=== PATIENT | male | born 1945 | race Caucasian/White ===

== ENCOUNTER 2017-01-02 07:20 | Day surgery (SDC) | payer MEDICARE, OTHER ==
[2016-12-25 12:26] VITALS: BMI 24.3
[~2017-01-02 07:20] MED LIST: LACTATED RINGERS 1,000 ML IV SCH; LIDOCAINE 1% 20 ML VIAL (10MG/ML) FOR IV START INTRADERMA PRN; MOXIFLOXACIN HCL 0.5% DROPS 3 ML BTL OP ONE; TETRACAINE 0.5% OPHTH (PF) DROPS 4 ML BTL OP ONE; TIMOLOL 0.5% OPHTH SOLN (PF) 0.2 ML DROPERETTE OP ONE
[2017-01-02 07:42] VITALS: RESP 16
[2017-01-02] MEDS: CYCLOPENTOLATE 1% OPHTH SOLN 2 ML BTL OP ONE ×2 (07:58→08:05)
[2017-01-02] MEDS: PHENYLEPHRINE 2.5% OPHTH DRP 2ML OP NR ×3 (07:59→08:07)
[2017-01-02] MEDS ORDERED: HYALURONATE SODIUM INTRAOCULAR 1 EACH SYRINGE (12MG/ML) INTRAOCULA ONE (08:55)
[2017-01-02] MEDS ORDERED: LIDOCAINE 1% (PF) 10MG/ML VIAL MISCELLANE ONE (08:55)
[2017-01-02] MEDS ORDERED: BALANCED SALT IRRIG SOLN COMB2 15 ML IRRIG.SOLN IRRIGATION ONE (08:55)
[2017-01-02] MEDS ORDERED: fentaNYL (PF) 50 MCG/ML 2 ML AMP ONE (08:56)
[2017-01-02] MEDS ORDERED: MIDAZOLAM 2 MG/2 ML VIAL ONE (08:56)
[2017-01-02] MEDS ORDERED: EPINEPHrine (PF) 0.3 ML in BALANCED SALT IRRIG SOLN COMB2 500 ML IRRIGATION ONE (09:05)
[2017-01-02] MEDS ORDERED: ATROPINE OPHTH SOLN 1% 5ML BTL RIGHT EYE ONE (09:08)
[2017-01-02] MEDS ORDERED: FLUORESCEIN STRIPS 1 MG STRIP RIGHT EYE ONE (09:32)
--- NOTE | 2017-01-02 09:38 | P.OP ---
Date of Procedure: 01/02/17 Preoperative Diagnosis: NS & CS Postoperative Diagnosis: same Procedure(s) Performed: PIOL, OD Implants: AO2UV 15.50 Anesthesia: MAC Surgeon: Tenzin Logan Estimated Blood Loss (ml): 0 Pathology: none sent Condition: stable Disposition: same day Indications for Procedure: blurry vision Operative Findings: No complications Description of Procedure:
[2017-01-02 09:56] VITALS: BP 144/67; PULSE 57
--- NOTE | 2017-01-03 09:19 | OP ---
PROCEDURE: Phacoemulsification of cataract and intraocular lens implant right eye: (Standard) [place] Lens OP note for the right eye. PREOPERATIVE DIAGNOSIS: Nuclear sclerosis. Cortical sclerosis. Viscoelastic: Amvisc. Phacoemulsification time is 9.5 seconds at 9% power. IMPLANT: Bausch and Lomb [place] Lens, AO2UV 15.5 diopters. MTDD
== END 2017-01-02 10:27 | disposition home or self-care (01) ==
LOC: OR 07:20
PROVIDERS: ATTEND Ophthalmology
DX: H25.11 Age-related nuclear cataract, right eye (principal); H25.011 Cortical age-related cataract, right eye; H52.13 Myopia, bilateral; H52.223 Regular astigmatism, bilateral; I10 Essential (primary) hypertension; Z87.891 Personal history of nicotine dependence; F32.9 Major depressive disorder, single episode, unspecified; F41.9 Anxiety disorder, unspecified; K21.9 Gastro-esophageal reflux disease without esophagitis; Z79.899 Other long term (current) drug therapy

== ENCOUNTER 2017-01-23 08:18 | Day surgery (SDC) | payer OTHER ==
[2017-01-16 14:49] VITALS: BMI 24.3
[~2017-01-23 08:18] MED LIST changes: -LIDOCAINE 1% 20 ML VIAL (10MG/ML) FOR IV START INTRADERMA PRN
[2017-01-23] MEDS: CYCLOPENTOLATE 1% OPHTH SOLN 2 ML BTL OP ONE ×2 (08:50→08:56)
[2017-01-23] MEDS: PHENYLEPHRINE 2.5% OPHTH DRP 2ML OP NR ×3 (08:53→09:06)
[2017-01-23] MEDS ORDERED: LIDOCAINE 1% 20 ML VIAL (10MG/ML) FOR IV START INTRADERMA ONE (09:00)
[2017-01-23 09:26] VITALS: RESP 16; TEMP 98
[2017-01-23] MEDS ORDERED: MIDAZOLAM 2 MG/2 ML VIAL ONE (09:51)
[2017-01-23] MEDS ORDERED: fentaNYL (PF) 50 MCG/ML 2 ML AMP ONE (09:51)
[2017-01-23] MEDS ORDERED: EPINEPHrine (PF) 0.3 ML in BALANCED SALT IRRIG SOLN COMB2 500 ML IRRIGATION ONE (09:54)
[2017-01-23] MEDS ORDERED: HYALURONATE SODIUM INTRAOCULAR 1 EACH SYRINGE (12MG/ML) INTRAOCULA ONE (09:59)
[2017-01-23] MEDS ORDERED: BALANCED SALT IRRIG SOLN COMB2 15 ML IRRIG.SOLN INTRAOCULA ONE (09:59)
[2017-01-23] MEDS ORDERED: LIDOCAINE 1% (PF) 10MG/ML VIAL MISCELLANE ONE (10:00)
[2017-01-23] MEDS ORDERED: ATROPINE OPHTH SOLN 1% 5ML BTL LEFT EYE ONE (10:00)
[2017-01-23] MEDS ORDERED: FLUORESCEIN STRIPS 1 MG STRIP LEFT EYE ONE (10:23)
--- NOTE | 2017-01-23 10:29 | P.OP ---
Date of Procedure: 01/23/17 Preoperative Diagnosis: Ns & CS Postoperative Diagnosis: same Procedure(s) Performed: PIOL, OS Implants: crystalens AO2VU 14.50 Anesthesia: MAC Surgeon: Tenzin Logan Estimated Blood Loss (ml): 0 Pathology: none sent Condition: stable Disposition: same day Indications for Procedure: blurry vision Operative Findings: No complications Description of Procedure:
[2017-01-23 10:48] VITALS: BP 134/65; PULSE 61
--- NOTE | 2017-01-24 15:11 | OP ---
OPERATIVE REPORT Date of Surgery: DATE OF SURGERY: 01/23/2017 PROCEDURE: Phacoemulsification of cataract and intraocular lens implant of the left eye with Crystal Lens. PREOPERATIVE DIAGNOSIS:: Nuclear sclerosis, cortical sclerosis. POSTOPERATIVE DIAGNOSIS:: Same. OPERATION:: Clear cornea phacoemulsification of cataract and intraocular lens implant of left eye with Crystal Lens. ESTIMATED BLOOD LOSS:: Zero. SPECIMEN TAKEN:: None. NARRATIVE:: After obtaining the appropriate consent, the patient was brought to the Operating Room where the patient was placed under cardiac monitoring and prepped and draped in the usual sterile manner. At the 11 o'clock position a 15 degree super sharp blade was used to create a paracentesis followed by instillation of 1% Xylocaine MPF 50:50 mix with BSS into the anterior chamber. This was followed by to stabilize the anterior chamber. At the 9 o'clock position a self-sealing corneal flap incision was created using 2.8 mm colton keratome. A cystatome was used to initiate a continuous tear capsulorrhexis which was completed with the Utrata forceps. A Binkhorst cannula was used to hydrodissect the lens nucleus followed by hydrodelineation. Phacoemulsification of the lens was performed utilizing phacochop in 10.51 seconds at 9 % power. The remaining cortical material was removed using the irrigation aspiration mode followed by additional 1% Xylocaine MPF into the anterior chamber followed by viscoelastic to stabilize the capsular bag. An posterior chamber lens was placed into the capsular bag without difficulty. The remaining viscoelastic material was removed from the anterior chamber with the irrigation/aspiration. Balanced salt solution was used to normalize the intraocular pressure. The incision was checked for watertight integrity. The patient then received two drops of 0.5% timolol followed by two drops Vigamox, was lightly patched and shielded in the usual manner. There were no complications from the procedure. The patient tolerated the procedure well and was returned to recovery in good condition. Nuclear sclerosis. The implant is a Bausch and Lomb crystal lens AO to UV 14.5 diopter. MMODL / IJN: [id number] /
== END 2017-01-23 11:21 | disposition home or self-care (01) ==
LOC: OR 08:18
PROVIDERS: ATTEND Ophthalmology
DX: H25.12 Age-related nuclear cataract, left eye (principal); H25.012 Cortical age-related cataract, left eye; H52.13 Myopia, bilateral; H43.813 Vitreous degeneration, bilateral; H52.223 Regular astigmatism, bilateral; Z98.41 Cataract extraction status, right eye; Z96.1 Presence of intraocular lens; I10 Essential (primary) hypertension; K21.9 Gastro-esophageal reflux disease without esophagitis; F32.9 Major depressive disorder, single episode, unspecified; F41.9 Anxiety disorder, unspecified; E78.5 Hyperlipidemia, unspecified; Z87.891 Personal history of nicotine dependence; Z79.899 Other long term (current) drug therapy

== ENCOUNTER 2017-10-04 09:26 | Emergency (ER) | payer MEDICARE, OTHER ==
[2017-10-04] MEDS ORDERED: IPRATROPIUM-ALBUTEROL 3 ML NEB INHALATION STA (10:18)
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
[2017-10-04 10:28] LABS: Glucose,Whole Blood 124 mg/dL (75-99)
[2017-10-04 10:40] LABS: Basophils % (A) 1 %; Eosinophils # (A) 0.2 k/uL (0-0.7); Eosinophils % (A) 2 %; HGB 16.1 gm/dL (13.0-17.5); Lymphocytes # (A) 1.8 k/uL (1.0-4.8); Lymphocytes % (A) 27 %; MCH 29.4 pg (25.0-35.0); MCHC 34.9 g/dL (31.0-37.0); MCV 84.2 fL (80.0-100.0); Mean Platelet Volume 7.3; Monocytes # (A) 0.5 k/uL (0-1.0); Monocytes % (A) 7 %; Neutrophils # (A) 4.1 k/uL (1.3-7.7); Neutrophils % (A) 61 %; Platelet Count 251 k/uL (150-450); RBC 5.46 m/uL (4.30-5.90); RDW 14.1 % (11.5-15.5); WBC 6.8 k/uL (3.8-10.6)
--- NOTE | 2017-10-04 10:50 | XR ---
EXAMINATION TYPE: XR chest 2V DATE OF EXAM: 10/04/2017 COMPARISON: 06/09/2015 TECHNIQUE: PA and lateral views submitted. HISTORY: dizziness, SOB FINDINGS: The lungs are clear and there is no pneumothorax, pleural effusion, or focal pneumonia. Hypertrophi c and degenerative change of the spine. Biapical pleural thickening. IMPRESSION: 1. No acute process.
[2017-10-04 10:55] LABS: D-Dimer 0.5 mg/L FEU (<0.60); Partial Thromboplastin Time 23.6 sec (22.0-30.0)
--- NOTE | 2017-10-04 11:06 | CT ---
EXAMINATION TYPE: CT brain wo con DATE OF EXAM: 10/04/2017 COMPARISON: NONE HISTORY: Dizziness, memory loss and weakness CT DLP: 1219 mGycm Automated exposure control for dose reduction was used. FINDINGS: Ventricular system is midline. No mass effect. Faint periventricular low attenuation most compatible with remote microvascular ischemia. Calvarium intact. Low-attenuation the white matter is nonspecific but most typical remote microvascul ar ischemia. Hyperdense lesion along the epidermis posterior occiput appears chronic correlate with p hysical exam. IMPRESSION: NONSPECIFIC WHITE MATTER CHANGES MOST TYPICAL REMOTE MICROVASCULAR ISCHEMIA . IF THERE IS CLINICAL CO NCERN FOR ACUTE ISCHEMIA CORRELATE WITH MRI.
[2017-10-04 11:08] LABS: Creatine Kinase 40 U/L (55-170)
[2017-10-04 11:18] LABS: Albumin 4.2 g/dL (3.5-5.0); Calcium 9.7 mg/dL (8.4-10.2); Potassium 4.3 mmol/L (3.5-5.1); Total Bilirubin 0.7 mg/dL (0.2-1.3); Total Protein 6.9 g/dL (6.3-8.2)
[2017-10-04 11:20] LABS: Creatine Kinase MB 0.9 ng/mL (0.0-2.4); Troponin I <0.012 ng/mL (0.000-0.034)
--- NOTE | 2017-10-04 12:11 | ED ---
Medical Decision Making - Lab Data Result diagrams: 10/04/17 10:20 10/04/17 10:20 Lab Results 10/04/17 10/04/17 10/04/17 Range/Units 10:20 10:20 10:20 WBC 6.8 (3.8-10.6) k/uL RBC 5.46 (4.30-5.90) m/uL Hgb 16.1 (13.0-17.5) gm/dL Hct 46.0 (39.0-53.0) % MCV 84.2 (80.0-100.0) fL MCH 29.4 (25.0-35.0) pg MCHC 34.9 (31.0-37.0) g/dL RDW 14.1 (11.5-15.5) % Plt Count 251 (150-450) k/uL Neutrophils % 61 % Lymphocytes % 27 % Monocytes % 7 % Eosinophils % 2 % Basophils % 1 % Neutrophils # 4.1 (1.3-7.7) k/uL Lymphocytes # 1.8 (1.0-4.8) k/uL Monocytes # 0.5 (0-1.0) k/uL Eosinophils # 0.2 (0-0.7) k/uL Basophils # 0.0 (0-0.2) k/uL PT (9.0-12.0) sec INR (<1.2) APTT (22.0-30.0) sec D-Dimer (<0.60) mg/L FEU Sodium 139 (137-145) mmol/L Potassium 4.3 (3.5-5.1) mmol/L Chloride 103 (98-107) mmol/L Carbon Dioxide 21 L (22-30) mmol/L Anion Gap 15 mmol/L BUN 18 (9-20) mg/dL Creatinine 1.15 (0.66-1.25) mg/dL Est GFR (CKD-EPI)AfAm 73 (>60 ml/min/1.73 sqM) Est GFR (CKD-EPI)NonAf 63 (>60 ml/min/1.73 sqM) Glucose 117 H (74-99) mg/dL POC Glucose (mg/dL) (75-99) mg/dL POC Glu Cutting Machine Tender ID Calcium 9.7 (8.4-10.2) mg/dL Total Bilirubin 0.7 (0.2-1.3) mg/dL AST 21 (17-59) U/L ALT 28 (21-72) U/L Alkaline Phosphatase 101 (38-126) U/L Total Creatine Kinase 40 L (55-170) U/L CK-MB (CK-2) 0.9 (0.0-2.4) ng/mL CK-MB (CK-2) Rel Index 2.3 Troponin I <0.012 (0.000-0.034) ng/mL NT-Pro-B Natriuret Pep pg/mL Total Protein 6.9 (6.3-8.2) g/dL Albumin 4.2 (3.5-5.0) g/dL 10/04/17 10/04/17 10/04/17 Range/Units 10:20 10:20 10:22 WBC (3.8-10.6) k/uL RBC (4.30-5.90) m/uL Hgb (13.0-17.5) gm/dL Hct (39.0-53.0) % MCV (80.0-100.0) fL MCH (25.0-35.0) pg MCHC (31.0-37.0) g/dL RDW (11.5-15.5) % Plt Count (150-450) k/uL Neutrophils % % Lymphocytes % % Monocytes % % Eosinophils % % Basophils % % Neutrophils # (1.3-7.7) k/uL Lymphocytes # (1.0-4.8) k/uL Monocytes # (0-1.0) k/uL Eosinophils # (0-0.7) k/uL Basophils # (0-0.2) k/uL PT 10.0 (9.0-12.0) sec INR 1.0 (<1.2) APTT 23.6 (22.0-30.0) sec D-Dimer 0.50 (<0.60) mg/L FEU Sodium (137-145) mmol/L Potassium (3.5-5.1) mmol/L Chloride (98-107) mmol/L Carbon Dioxide (22-30) mmol/L Anion Gap mmol/L BUN (9-20) mg/dL Creatinine (0.66-1.25) mg/dL Est GFR (CKD-EPI)AfAm (>60 ml/min/1.73 sqM) Est GFR (CKD-EPI)NonAf (>60 ml/min/1.73 sqM) Glucose (74-99) mg/dL POC Glucose (mg/dL) 124 H (75-99) mg/dL POC Glu Cutting Machine Tender ID Duc Bhatt Calcium (8.4-10.2) mg/dL Total Bilirubin (0.2-1.3) mg/dL AST (17-59) U/L ALT (21-72) U/L Alkaline Phosphatase (38-126) U/L Total Creatine Kinase (55-170) U/L CK-MB (CK-2) (0.0-2.4) ng/mL CK-MB (CK-2) Rel Index Troponin I (0.000-0.034) ng/mL NT-Pro-B Natriuret Pep 37 pg/mL Total Protein (6.3-8.2) g/dL Albumin (3.5-5.0) g/dL Disposition Clinical Impression: Dizziness, Dyspnea, Acute chest pain, Paresthesia, COPD exacerbation Disposition: HOME SELF-CARE Condition: Good Instructions: Dizziness (ED), COPD (Chronic Obstructive Pulmonary Disease) (ED) , Chest Pain (ED) Additional Instructions: Please use the nebulizer at home and can use the inhaler if her way from home. Prescriptions: Albuterol Sulfate [Proair Hfa] 2 puff INHALATION Q6HR PRN #1 inhaler PRN Reason: Shortness Of Breath Or Wheezing Ipratropium-Albuterol Nebulize [Duoneb 0.5 mg-3 mg/3 ml Soln] 3 ml INHALATION Q6HR PRN #120 neb PRN Reason: Shortness Of Breath predniSONE 20 mg PO BID #10 tab Is patient prescribed a controlled substance at d/c from ED?: No Referrals: [facility],Clinic [Primary Care Provider] - 1-2 days
[2017-10-04 12:31] VITALS: BP 116/69; PULSE 77; RESP 16; TEMP 97.2
== END 2017-10-04 12:29 | disposition home or self-care (01) ==
LOC: EC 09:26
DX: J44.1 Chronic obstructive pulmonary disease with (acute) exacerbation (principal); I49.3 Ventricular premature depolarization; R42 Dizziness and giddiness; R53.1 Weakness; R26.81 Unsteadiness on feet; I10 Essential (primary) hypertension; M19.041 Primary osteoarthritis, right hand; M19.042 Primary osteoarthritis, left hand; F32.9 Major depressive disorder, single episode, unspecified; Z87.891 Personal history of nicotine dependence; Z79.82 Long term (current) use of aspirin; Z79.899 Other long term (current) drug therapy
CPT/HCPCS: 36415; 70450; 71046; 80053; 82550; 82553; 83880; 84484; 85025; 85379; 85610; 85730; 87040; 93005; 94640; 99284

== ENCOUNTER → 2019-11-13 | Outpatient (CLI) | payer OTHER ==
--- NOTE | 2019-11-13 14:34 | US ---
EXAMINATION TYPE: US carotid duplex BILAT DATE OF EXAM: 11/13/2019 COMPARISON: NONE CLINICAL HISTORY: I65.29 Occlusion and stenosis of unspecified carotid. Patient states having known s ignificant Carotid stenosis. Patient states having TIA/stroke in Jun 2019 with imaging performed at [facility]. EXAM MEASUREMENTS: RIGHT: Peak Systolic Velocity (PSV) cm/sec ----- Right CCA: 130.2 ----- Right ICA: 348.0 ----- Right ECA: 107.6 ICA/CCA ratio: 2.7 RIGHT: End Diastole cm/sec ----- Right CCA: 34.9 ----- Right ICA: 146.0 ----- Right ECA: 11.1 LEFT: Peak Systolic Velocity (PSV) cm/sec ----- Left CCA: 85.8 ----- Left ICA: 361.7 ----- Left ECA: 114.5 ICA/CCA ratio: 4.2 LEFT: End Diastole cm/sec ----- Left CCA: 18.4 ----- Left ICA: 118.5 ----- Left ECA: 9.5 VERTEBRALS (direction of flow): Right Vertebral: Antegrade Left Vertebral: Antegrade Rhythm: Normal Bilateral significant stenosis. Elevated velocities in right CCA, right ICA and left ICA. Plaque se en in bilateral bulbs and left CCA. Bilateral wall thickening. IMPRESSION: 1. Significant flow-limiting stenosis greater than 70% at the bilateral carotid bifurcations. Criteria for Assigning % of Stenosis / Diameter reduction (Estimation based on the indirect measurements of the internal carotid artery velocities (ICA PSV). 1. Normal (no stenosis)=ICA PSV < 125 cm/s: ratio < 2.0: ICA EDV<40 cm/s. 2. Less than 50% stenosis=ICA PSV < 125 cm/s: ratio < 2.0: ICA EDV<40 cm/s. 3. 50 to 69% stenosis=ICA PSV of 125 to 230 cm/s: ration 2.0 ? 4.0: ICA EDV 40-100 cm/s. 4. Greater than 70% stenosis to near occlusion= ICA PSV > 230 cm/s: ratio > 4.0: ICA EDV > 100 cm/s. 5. Near occlusion= ICA PSV velocities may be low or undetectable: variable ratio and ICA EDV. 6. Total occlusion=unable to detect flow.
== END | disposition home or self-care (01) ==
LOC: RADUSWWP 12:49
DX: I65.23 Occlusion and stenosis of bilateral carotid arteries (principal)
CPT/HCPCS: 93880

== ENCOUNTER 2022-02-27 14:18 | Emergency (ER) | payer OTHER ==
[2022-02-27 14:22] VITALS: TEMP 98
[2022-02-27] MEDS ORDERED: LIDOCAINE 1% INJ 10MG/ML (20 ML MDV) SQ ONE (14:30)
[2022-02-27] MEDS ORDERED: DIPH,PERTUS(ACELL)TETVAC-LF 0.5 ML VIAL IM ONE (14:30)
[2022-02-27] MEDS ORDERED: BACITRACIN OINT 1 EACH PACKET TOPICAL ONE (14:33)
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
[2022-02-27 15:15] VITALS: BP 133/75; PULSE 74; RESP 18
== END 2022-02-27 15:15 | disposition home or self-care (01) ==
LOC: EC 14:18
DX: S61.211A Laceration without foreign body of left index finger without damage to nail, initial encounter (principal); I10 Essential (primary) hypertension; E78.5 Hyperlipidemia, unspecified; Z87.891 Personal history of nicotine dependence; Z79.899 Other long term (current) drug therapy; Z23 Encounter for immunization; W31.2XXA Contact with powered woodworking and forming machines, initial encounter; Y92.89 Other specified places as the place of occurrence of the external cause
CPT/HCPCS: 90715; 12001; 90471; 99282; J2001

== ENCOUNTER 2022-09-26 11:22 | Emergency (ER) | payer OTHER, MEDICARE ==
[2022-09-26 11:28] VITALS: BP 130/72; PULSE 87; RESP 18; TEMP 98.2
[2022-09-26] MEDS ORDERED: AMOXIC-POT CLAV 875-125MG 1 EACH TAB PO STA (11:30)
[2022-09-26] MEDS ORDERED: ACETAMINOPHEN TAB 500 MG TAB PO STA (11:55)
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
== END 2022-09-26 12:07 | disposition home or self-care (01) ==
LOC: EC 11:22
DX: S61.452A Open bite of left hand, initial encounter (principal); I10 Essential (primary) hypertension; E78.5 Hyperlipidemia, unspecified; M19.90 Unspecified osteoarthritis, unspecified site; F32.A Depression, unspecified; Z87.891 Personal history of nicotine dependence; Z79.82 Long term (current) use of aspirin; Z79.899 Other long term (current) drug therapy; W55.01XA Bitten by cat, initial encounter
CPT/HCPCS: 99283